=== PATIENT | female | born 1985 | race Caucasian/White ===

== ENCOUNTER 2017-06-19 07:01 | Emergency (ER) | payer MEDICAID ==
[~2017-06-19] VITALS: Ht 160 cm; Wt 108.0 kg
[~2017-06-19 07:01] MED LIST: ACHD5005 PO; BCP PO; CETI10TA20 PO; FRS325T PO; HYDR-3454 PO; IBP600T1 PO; ONDAN4ODT PO; OXYC-12 PO; PNT40TEC PO; PREN1TAB14 PO; RT-ALBUINH IH; TRIA10.8 NS
--- OUTSIDE RECORDS SUMMARY | 2017-06-19 07:07 | XMS REPORT ---
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
[2017-06-19] MEDS ORDERED: CYCL10TA9 PO (07:47)
[2017-06-19 07:57] VITALS: BP 133/72
== END 2017-06-19 07:57 | disposition home or self-care (01) ==
LOC: EDUNIT# 07:01 → ER 07:03
DX: S39.012A Strain of muscle, fascia and tendon of lower back, initial encounter (principal); J45.909 Unspecified asthma, uncomplicated; Z90.89 Acquired absence of other organs; X50.0XXA Overexertion from strenuous movement or load, initial encounter
CPT/HCPCS: 99281

== ENCOUNTER → 2017-09-17 | Outpatient (CLI) | payer MEDICAID ==
[~2017-09-17] MED LIST changes: +CYCL10TA9 PO
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
== END ==
LOC: RAD 12:12
PROVIDERS: ATTEND Family Medicine
DX: M25.511 Pain in right shoulder (principal); V49.9XXA Car occupant (driver) (passenger) injured in unspecified traffic accident, initial encounter
CPT/HCPCS: 73000; 73030